=== PATIENT | female | born 2000 | race Caucasian/White ===

== ENCOUNTER 2021-02-01 13:53 | Emergency (ER) | payer BC, SELFPAY ==
[2021-02-01 15:23] LABS: Urine Blood Trace-intact (Negative); Urine Glucose Negative (Negative); Urine Protein Negative (Negative); Urine Specific Gravity >=1.030 (1.005-1.030)
[2021-02-01] MEDS ORDERED: ONDANSETRON 4 MG/2 ML VIAL ONE (15:31)
[2021-02-01] MEDS ORDERED: NA CHLORIDE 0.9% 1,000 ML ONE (15:35)
[2021-02-01 15:39] LABS: Absolute Lymphocytes (CBC) 0.5 K/uL (0.7-4.9); Basophils % 0.3 % (0-1.3); Hematocrit 39.7 % (36.0-45.0); Lymphocytes % 4.5 % (15.3-44.8); MPV 8.9 fL (7.6-11.3); RBC Red Blood Cell Count 4.42 M/uL (3.86-4.86)
[2021-02-01 16:01] LABS: Urine Specific Gravity/Preg >1.030 (1.005-1.030)
[2021-02-01 16:05] LABS: Albumin 4.4 g/dL (3.4-5.0); Bilirubin Direct 0.3 mg/dL (0-0.2); Bilirubin Total 1.2 mg/dL (0.2-1.0); Potassium 4.1 mmol/L (3.5-5.1); Protein, Total 7.7 g/dL (6.4-8.2)
--- NOTE | 2021-02-01 17:22 | RAD REPORT ---
EXAM DESCRIPTION: CTAbdomen Pelvis W Contrast - 02/01/2021 5:12 pm CLINICAL HISTORY: Abdominal pain. lwoer abdominal pain COMPARISON: No comparisons TECHNIQUE: Biphasic CT imaging of the abdomen and pelvis was performed with 100 ml non-ionic IV cont rast. All CT scans are performed using dose optimization technique as appropriate and may include automated exposure control or mA/KV adjustment according to patient size. FINDINGS: The lung bases are clear. The liver, spleen, pancreas, adrenal glands and kidneys are within normal limits. No bowel obstruction, free air, free fluid or abscess. Prominent rectosigmoid retained stool. The vasile endix is normal. No evidence of significant lymphadenopathy. No suspicious bony findings. IMPRESSION: No acute intra-abdominal or pelvic finding.
--- NOTE | 2021-02-01 18:42 | ER ---
Nurse's Notes [facility] Name: Yousif Duran Age: 21 yrs Sex: Female : 2000 Arrival Date: 02/01/2021 Time: 13:56 Bed 5 Private MD: Diagnosis: Vomiting;Lower abdominal pain, unspecified Presentation: 02/01 14:00 Chief complaint: Patient states: "I was told I have kidney problems. I had a couple of jd3 drinks last night, nothing more than normal, but today I can't keep anything down and I can't stop shaking.". Coronavirus screen: At this time, the client does not indicate any symptoms associated with coronavirus-19. Ebola Screen: Patient negative for fever greater than or equal to 101.5 degrees Fahrenheit, and additional compatible Ebola Virus Disease symptoms. Initial Sepsis Screen: Does the patient meet any 2 criteria? No. Patient's initial sepsis screen is negative. Does the patient have a suspected source of infection? No. Patient's initial sepsis screen is negative. Risk Assessment: Do you want to hurt yourself or someone else? Patient reports no desire to harm self or others. Onset of symptoms was February 01, 2021. 14:00 Method Of Arrival: Wheelchair jd3 14:00 Acuity: SHAMIKA 3 jd3 LINK CUTTER: 14:02 LMP N/A - control method jd3 Historical: - Allergies: 14:02 No Known Allergies; jd3 - Home Meds: 14:02 None [Active]; jd3 - PMHx: 14:02 None; jd3 - PSHx: 14:02 None; jd3 - Immunization history:: Adult Immunizations up to date. - Social history:: Smoking status: Patient denies any tobacco usage or history of. Screenin:27 Abuse screen: Denies threats or abuse. Nutritional screening: No deficits noted. ll1 Tuberculosis screening: No symptoms or risk factors identified. Fall Risk IV access (20 points). Gait- Weak (10 pts.). Total Orozco Fall Scale indicates Low Risk Score (25-44 pts). Fall prevention measures have been instituted. Side Rails Up X 2 Placed close to Nursing Station Frequent Obs/Assesments occuring Family Present and informed to notify staff if they need to leave bedside As available Patient and Family Educated on Fall Prevention Program and strategies. Assessment: 15:27 General: Appears in no apparent distress. Behavior is calm, cooperative, appropriate ll1 for age. Pain: Denies pain. GI: Abdomen is flat, Bowel sounds present X 4 quads. Abd is soft and non tender X 4 quads. Reports cramping, nausea, vomiting. 16:30 Reassessment: No changes from previously documented assessment. Patient and/or family ll1 updated on plan of care and expected duration. Pain level reassessed. 17:30 Reassessment: No changes from previously documented assessment. Patient and/or family ll1 updated on plan of care and expected duration. Pain level reassessed. 18:30 Reassessment: No changes from previously documented assessment. Patient and/or family ll1 updated on plan of care and expected duration. Pain level reassessed. Patient is alert, oriented x 3, equal unlabored respirations, skin warm/dry/pink. Patient states feeling better. Vital Signs: 14:02 BP 111 / 50; Pulse 125; Resp 17 S; Temp 98.7(TE); Pulse Ox 97% on R/A; Weight 45.36 kg j (R); Height 5 ft. 1 in. (154.94 cm) (R); Pain 6/10; 15:26 BP 118 / 68; Pulse 97; Resp 17; ll1 18:08 BP 119 / 68; Pulse 93; Resp 17; Pulse Ox 97% on R/A; ll1 18:54 BP 116 / 53; Pulse 98; Resp 16; Pulse Ox 100% ; Pain 0/10; ll1 14:02 Body Mass Index 18.89 (45.36 kg, 154.94 cm) [facility] ED Course: 13:56 Patient arrived in ED. as 14:02 Triage completed. [facility] 14:04 Arm band placed on. [facility] 14:48 Allen Calderon PA is PHCP. [facility] 14:48 Gene Knight MD is Attending Physician. [facility] 14:52 Gege Camejo, EBONIE is Primary Nurse. 1 15:22 Urine collected: clean catch specimen, clear. Inserted saline lock: 20 gauge in right 5 antecubital area, using aseptic technique. 15:23 Patient has correct armband on for positive identification. Bed in low position. Call [facility] light in reach. Side rails up X 1. Adult w/ patient. Warm blanket given. Pulse ox on. NIBP on. 15:24 Lipase Sent. [facility] 15:24 Basic Metabolic Panel Sent. [facility] 15:24 CBC with Diff Sent. [facility] 15:24 Hepatic Function Sent. [facility] 15:24 Urine Dipstick-Ancillary Sent. [facility] 17:12 CT Abd/Pelvis - IV Contrast Only In Process Unspecified. EDMS 18:54 No provider procedures requiring assistance completed. IV discontinued, intact, ll1 bleeding controlled, No redness/swelling at site. Pressure dressing applied. Administered Medications: 15:14 Drug: Zofran (Ondansetron) 4 mg Route: IVP; Site: right antecubital; 1 18:55 Follow up: Response: No adverse reaction; RASS: Alert and Calm (0) 1 15:25 Drug: NS 0.9% 1000 ml Route: IV; Rate: 1 bolus; Site: right antecubital; 1 18:55 Follow up: Response: No adverse reaction; RASS: Alert and Calm (0); IV Status: ll1 Completed infusion; IV Intake: 1000ml Intake: 18:55 IV: 1000ml; Total: 1000ml. 1 Outcome: 18:41 Discharge ordered by . joao 18:54 Discharged to home ambulatory. 1 18:54 Condition: stable 18:54 Discharge instructions given to patient, Instructed on discharge instructions, follow up and referral plans. medication usage, Demonstrated understanding of instructions, follow-up care, medications, Prescriptions given X 1. 18:55 Patient left the ED. 1 Signatures: Dispatcher [employer] EDWA Allen Calderon PA PA jmm Martinez, Amelia as Martinez, Maria [facility] Shawn Alonso RN RN Gege Brown RN RN ll1
--- NOTE | 2021-02-01 18:42 | EDPHYS ---
Physician Documentation [facility] Name: Yousif Duran Age: 21 yrs Sex: Female : 2000 Arrival Date: 02/01/2021 Time: 13:56 Bed 5 Private MD: ED Physician Gene Knight HPI: 02/01 15:13 This 21 yrs old Female presents to ER via Wheelchair with complaints of jmm Vomiting, Flank Pain. 15:13 The patient presents to the emergency department with vomiting. Onset: The jmm symptoms/episode began/occurred today. Possible causes: unknown. Associated signs and symptoms: Pertinent positives: vomiting. It is unknown whether or not the patient has had similar symptoms in the past. This is a 21 year old female with a history of an unknown kidney condition that presents to the ED with complaints of lower back pain and vomiting beginning today. Denies fever. . [facility]ION[facility] DOCTOR'S OFFICE: 14:02 LMP N/A - control method jd3 Historical: - Allergies: 14:02 No Known Allergies; jd3 - Home Meds: 14:02 None [Active]; jd3 - PMHx: 14:02 None; jd3 - PSHx: 14:02 None; jd3 - Immunization history:: Adult Immunizations up to date. - Social history:: Smoking status: Patient denies any tobacco usage or history of. ROS: 15:13 Constitutional: Negative for fever, chills, and weight loss, Cardiovascular: Negative jmm for chest pain, palpitations, and edema, Respiratory: Negative for shortness of breath, cough, wheezing, and pleuritic chest pain. 15:13 Abdomen/GI: Positive for vomiting. 15:13 All other systems are negative. Exam: 15:13 Head/Face: atraumatic. Eyes: EOMI, no conjunctival erythema appreciated ENT: Moist jmm Mucus Membranes Neck: Trachea midline, Supple Chest/axilla: Normal chest wall appearance and motion. Cardiovascular: Regular rate and rhythm. No edema appreciated Respiratory: Normal respirations, no respiratory distress appreciated 15:13 Back: Normal ROM Skin: General appearance color normal MS/ Extremity: Moves all extremities, no obvious deformities appreciated, no edema noted to the lower extremities Neuro: Awake and alert, normal gait Psych: Behavior is normal, Mood is normal, Patient is cooperative and pleasant 15:13 Constitutional: The patient appears alert, awake, anxious. 15:13 Abdomen/GI: Inspection: abdomen appears normal, Bowel sounds: normal, Palpation: soft, mild abdominal tenderness, in all quadrants. Vital Signs: 14:02 BP 111 / 50; Pulse 125; Resp 17 S; Temp 98.7(TE); Pulse Ox 97% on R/A; Weight 45.36 kg jd3 (R); Height 5 ft. 1 in. (154.94 cm) (R); Pain 6/10; 15:26 BP 118 / 68; Pulse 97; Resp 17; ll1 18:08 BP 119 / 68; Pulse 93; Resp 17; Pulse Ox 97% on R/A; ll1 18:54 BP 116 / 53; Pulse 98; Resp 16; Pulse Ox 100% ; Pain 0/10; ll1 14:02 Body Mass Index 18.89 (45.36 kg, 154.94 cm) jd3 MDM: 15:01 Patient medically screened. [facility] 18:40 Data reviewed: vital signs, nurses notes. Counseling: I had a detailed discussion with joao the patient and/or guardian regarding: the historical points, exam findings, and any diagnostic results supporting the discharge/admit diagnosis, lab results, radiology results, the need for outpatient follow up, to return to the emergency department if symptoms worsen or persist or if there are any questions or concerns that arise at home. ED course: Pain is decreased. Patient tolerates PO in the ED. Patient otherwise given strict return precautions. patient understood and agrees with the plan of care. . 02/01 14:55 Order name: Basic Metabolic Panel; Complete Time: 16:14 [facility] 02/01 14:55 Order name: CBC with Diff; Complete Time: 16:01 [facility] 02/01 14:55 Order name: Hepatic Function; Complete Time: 16:14 [facility] 02/01 14:55 Order name: Lipase; Complete Time: 16:14 [facility] 02/01 15:22 Order name: Urine Dipstick-Ancillary [facility] 02/01 15:24 Order name: Urine --Ancillary (enter results); Complete Time: 16:02 02/01 14:52 Order name: Urine Dipstick-Ancillary (obtain specimen); Complete Time: 15:24 [facility] 02/01 14:52 Order name: Urine Test (obtain specimen); Complete Time: 15:24 [facility] 02/01 14:55 Order name: IV Saline Lock; Complete Time: 15:15 [facility] 02/01 14:55 Order name: Labs collected and sent; Complete Time: 15:15 [facility] 02/01 16:24 Order name: CT Abd/Pelvis - IV Contrast Only; Complete Time: 17:28 [facility] Administered Medications: 15:14 Drug: Zofran (Ondansetron) 4 mg Route: IVP; Site: right antecubital; ll1 18:55 Follow up: Response: No adverse reaction; RASS: Alert and Calm (0) ll1 15:25 Drug: NS 0.9% 1000 ml Route: IV; Rate: 1 bolus; Site: right antecubital; ll1 18:55 Follow up: Response: No adverse reaction; RASS: Alert and Calm (0); IV Status: ll1 Completed infusion; IV Intake: 1000ml Disposition: 19:02 Co-signature as Attending Physician, Gene Knight MD. rn Disposition: 02/01/21 18:41 Discharged to Home. Impression: Vomiting, Lower abdominal pain, unspecified. - Condition is Stable. - Discharge Instructions: Nausea and Vomiting, Adult. - Prescriptions for Zofran ODT 4 mg Oral tablet,disintegrating - place 1 tablet by TRANSLINGUAL route every 4-6 hours; 20 tablet. - Medication Reconciliation Form, Thank You Letter, Antibiotic Education, Prescription Opioid Use form. - Follow up: Private Physician; When: 2 - 3 days; Reason: Recheck today's complaints, Continuance of care, Re-evaluation by your physician. Signatures: Dispatcher [employer] EDMS Allen Calderon PA PA [facility] Gene Knight MD MD rn Davies, Jonathon, RN RN jd3 Lewis, Lynsay, RN RN ll1 Corrections: (The following items were deleted from the chart) 18:55 18:41 02/01/2021 18:41 Discharged to Home. Impression: Vomiting; Lower abdominal pain, ll1 unspecified. Condition is Stable. Forms are Medication Reconciliation Form, Thank You Letter, Antibiotic Education, Prescription Opioid Use. Follow up: Private Physician; When: 2 - 3 days; Reason: Recheck today's complaints, Continuance of care, Re-evaluation by your physician. [facility]
[2021-02-01 19:06] VITALS: TEMP 98.7
[2021-02-01 19:12] VITALS: BP 116/53; O2SAT 100
== END 2021-02-01 18:55 | disposition home or self-care (01) ==
LOC: ER 13:53
DX: R10.30 Lower abdominal pain, unspecified (principal)
CPT/HCPCS: 36415; 74177; 80048; 80076; 81003; 81025; 83690; 85025; 96361; 96374; 99284; J2405; J7030; Q9967